=== PATIENT | female | born 1995 | race Hispanic/Latino ===

== ENCOUNTER 2017-07-03 14:57 | Emergency (ER) | payer OTHER ==
[2017-07-03] MEDS ORDERED: traMADol HCl 50 MG TAB ONE (15:26)
== END 2017-07-03 15:45 | disposition home or self-care (01) ==
LOC: MADERS 14:57
DX: S61.314A Laceration without foreign body of right ring finger with damage to nail, initial encounter (principal); W26.8XXA Contact with other sharp object(s), not elsewhere classified, initial encounter
CPT/HCPCS: 99283